=== PATIENT | female | born 1955 | race Caucasian/White ===

== ENCOUNTER 2016-04-27 17:35 | Emergency (ER) | payer OTHER ==
[2016-04-27 19:19] LABS: URINE BILIRUBIN NEGATIVE (NEGATIVE); URINE BLOOD 3+ (NEGATIVE); URINE GLUCOSE (UA) NEGATIVE (NEGATIVE); URINE LEUKOCYTE ESTERASE TRACE (NEGATIVE); URINE NITRITE NEGATIVE (NEGATIVE); URINE PROTEIN TRACE (NEGATIVE); URINE UROBILINOGEN NORMAL (0-1 mg/dl)
[2016-04-27 19:23] LABS: URINE APPEARANCE HAZY; URINE COLOR YELLOW
[2016-04-27 19:33] LABS: URINE RBC 15-20 /hpf
[2016-04-27 19:34] LABS: URINE BACTERIA 1+; URINE EPITHELIAL CELLS 0 /hpf
[2016-04-27 19:46] LABS: ABSOLUTE NEUTROPHIL COUNT 2.2 K/mm3 (1.8-7.7); BASO # 0.1 K/mm3 (0.0-0.2); BASO % 0.9 % (0.2-1.0); EOS # 0.1 (0.0-0.5); EOS % 1.8 % (0.9-2.9); HEMATOCRIT 41.9 % (37.0-47.0); HEMOGLOBIN 13.7 gm/l (12.0-16.0); IMM NEUT% 0.2 % (0-1); LYMPH # 2.6 (1.0-4.8); LYMPH % 48.4 % (15-45); MEAN CELL VOLUME 90.7 fl (81.0-99.0); MEAN CORPUSCULAR HEMOGLOBIN 29.7 pg (27.0-31.0); MEAN CORPUSCULAR HGB CONC 32.7 g/dl (33.0-37.0); MEAN PLATELET VOLUME 9.7 fl (7.4-10.4); MONO # 0.4 (0.0-0.8); MONO % 7.9 % (4-12); NEUT % 40.8 % (43-75); PLATELET COUNT 259 K/mm3 (130-400); RED CELL DISTRIBUTION WIDTH 12.5 % (11.5-14.5)
[2016-04-27 19:59] LABS: ALB/GLOB RATIO 1.7 (>1.0); ALBUMIN 4.7 gm/dL (3.5-5.7); CALCIUM 9.6 mg/dL (8.6-10.3)
== END 2016-04-27 20:37 | disposition home or self-care (01) ==
LOC: ED 17:35
DX: N20.1 Calculus of ureter (principal); G89.29 Other chronic pain; R10.9 Unspecified abdominal pain